=== PATIENT | female | born 1985 | race Caucasian/White ===

== ENCOUNTER 2020-07-23 14:52 | Emergency (ER) | payer BC ==
[~2020-07-23] VITALS: Ht 162.6 cm; Wt 68.2 kg
[2020-07-23 16:07] VITALS: BP 119/75
== END 2020-07-23 16:17 | disposition home or self-care (01) ==
LOC: ER 14:52
DX: Z03.818 Encounter for observation for suspected exposure to other biological agents ruled out (principal)
CPT/HCPCS: 36415; 99282